=== PATIENT | male | born 1950 | race Caucasian/White ===

== ENCOUNTER 2018-04-20 11:22 | Outpatient (CLI) | payer MEDICARE ==
[2018-04-20 12:00] LABS: BASOPHILS % 0.3 (0.0-1.5); MEAN CORPUSCULAR HEMOGLOBIN 29.9 pg (28.0-34.0); MEAN CORPUSCULAR VOLUME 93.3 fl (80.0-100.0); MONOCYTES % 4.6 % (0.0-11.0); NEUTROPHILS # 6.7 # k/uL (1.4-7.7)
[2018-04-20 12:14] LABS: APPEARANCE,URINE CLEAR (CLEAR); COLOR,URINE YELLOW (YELLOW); OCCULT BLOOD,URINE NEGATIVE (NEGATIVE); PH URINE 5.5 (5.0 - 8.0); UROBILINOGEN URINE 0.2 Eu (0.2-1.0)
[2018-04-20 12:23] LABS: eGFR (African) > 60; eGFR (Non-African) > 60
== END 2018-04-20 11:23 ==
LOC: LAB 11:22
PROVIDERS: ATTEND Nurse Practitioner Family
DX: R53.1 Weakness (principal); M79.1 Myalgia
CPT/HCPCS: 36415; 80053; 81002; 82550; 85025

== ENCOUNTER 2018-05-18 15:14 | Outpatient (CLI) | payer MEDICARE ==
[2018-05-18 15:49] LABS: BASOPHILS % 0.3 (0.0-1.5); EOSINOPHILS % 5.3 % (0.0-6.8); MEAN CORPUSCULAR HEMOGLOBIN 30.9 pg (28.0-34.0); MEAN CORPUSCULAR VOLUME 94.6 fl (80.0-100.0); MONOCYTES % 4.6 % (0.0-11.0); NEUTROPHILS # 5.6 # k/uL (1.4-7.7)
[2018-05-18 16:18] LABS: eGFR (African) > 60; eGFR (Non-African) > 60
== END 2018-05-18 15:16 ==
LOC: LAB 15:14
PROVIDERS: ATTEND Nurse Practitioner
DX: R06.00 Dyspnea, unspecified (principal); M79.1 Myalgia; R53.83 Other fatigue
CPT/HCPCS: 36415; 80053; 82306; 83880; 85025; 85651